=== PATIENT | female | born 2005 | race Caucasian/White ===

== ENCOUNTER 2024-08-03 22:29 | Emergency (ER) | payer SELFPAY ==
--- NOTE | 2024-08-03 23:23 | EDPHYS ---
Physician Documentation [facility] Name: Elvia Bosch Age: 18 yrs Sex: Female : 2005 Arrival Date: 08/03/2024 Time: 22:29 Bed 8 Private MD: ED Physician Alexsander Richard HPI: 08/03 23:47 This 18 yrs old Female presents to ER via Ambulatory with complaints of Rectal kb Bleeding, Abdominal Pain. 23:47 Pt is a 18 year old female who presents for rectal bleeding that started a week ago. kb States she has noticed blood when she wipes after a bowel movement intermittently. Also reports intermittent nosebleeds. States she is concerned about internal bleeding due to cocaine use. . 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 - Infectious Disease History:: Denies. - Social history:: Smoking status: Patient reports the use of cigarette tobacco products, smokes one-half pack cigarettes per day. ROS: 23:47 Constitutional: As per HPI kb Exam: 23:47 Constitutional: This is a well developed, well nourished patient who is awake, alert, kb and in no acute distress. Head/Face: Normocephalic, atraumatic. ENT: Moist Mucous membranes Cardiovascular: Regular rate Respiratory: Respirations even and unlabored. No increased work of breathing. Talking in full sentences Abdomen/GI: Soft, non-tender. No distention Skin: Warm, dry with normal turgor. Normal color. MS/ Extremity: Pulses equal, no cyanosis. Neurovascular intact. Full, normal range of motion. Neuro: Awake and alert, GCS 15, oriented to person, place, time, and situation. 23:47 Abdomen/GI: Rectal exam: is unremarkable, rectal tone normal, Stool: normal, hemorrhoid(s), external, the exam is chaperoned by the nurse, Vital Signs: 23:24 BP 111 / 68; Pulse 78; Resp 18; Temp 98.9; Pulse Ox 98% ; Weight 56.7 kg; Height 5 ft. vc1 3 in. ; Pain 0/10; 23:24 Body Mass Index 22.14 (56.70 kg, 160.02 cm) vc1 23:24 Pain Scale: Adult vc1 MDM: 22:44 Medical Screening Exam initiated kb 23:48 Differential diagnosis: hemorrhoids, fissure. Data reviewed: vital signs, nurses notes. kb Test considered but Not performed: Labs: cbc, cmp considered but pt declines at this time. CT: CT considered but pt declines at this time. Counseling: I had a detailed discussion with the patient and/or guardian regarding the historical points, exam findings, and any diagnostic results supporting the discharge/admit diagnosis, the need for outpatient follow up, a family practitioner, to return to the emergency department if symptoms worsen or persist or if there are any questions or concerns that arise at home. Administered Medications: No medications were administered Disposition: 08/04 04:51 Co-signature as Attending Physician, Alexsander Richard MD I agree with the assessment sp4 and plan of care. I reviewed the patient's care provided by the Advanced Practice Provider and agree with the diagnosis and treatment plan. Disposition Summary: 08/03/24 23:22 Discharge Ordered Notes: Location: Home kb Condition: Stable kb Diagnosis - Other hemorrhoids kb Followup: kb - With: Emergency Department - When: As needed - Reason: Worsening of condition Followup: kb - With: Private Physician - When: 2 - 3 days - Reason: Recheck today's complaints, Continuance of care, Re-evaluation by your physician Discharge Instructions: - Discharge Summary Sheet kb - Hemorrhoids, [id number] kb Forms: - Medication Reconciliation Form kb - Antibiotic Education kb - Prescription Opioid Use kb - Patient Portal Instructions kb - Leadership Thank You Letter kb Signatures: Kasey Lees FNP-C FNP-Ckb Calcote, Vanessa, RN RN Alexsander Quintanilla MD MD sp4 Corrections: (The following items were deleted from the chart) 08/03 23:28 23:26 PMHx: None; vc1 vc1
--- NOTE | 2024-08-03 23:50 | ER ---
Nurse's Notes [facility] Name: Elvia Bosch Age: 18 yrs Sex: Female : 2005 Arrival Date: 08/03/2024 Time: 22:29 Bed 8 Private MD: Diagnosis: Other hemorrhoids Presentation: 08/03 23:24 Chief complaint: Patient states: Bloody noses and blood when wiping bottom. "I'm afraid vc1 I am bleeding internally, my medicine says it can cause bleeding and I have been doing coke.". Coronavirus screen: Client denies travel out of the [place] in the last 14 days. At this time, the client does not indicate any symptoms associated with coronavirus-19. Ebola Screen: Patient negative for fever greater than or equal to 101.5 degrees Fahrenheit, and additional compatible Ebola Virus Disease symptoms Patient denies exposure to infectious person. Patient denies travel to an Ebola-affected area in the 21 days before illness onset. No symptoms or risks identified at this time. Initial Sepsis Screen: Does the patient meet any 2 criteria? No. Patient's initial sepsis screen is negative. Does the patient have a suspected source of infection? No. Patient's initial sepsis screen is negative. Risk Assessment: Do you want to hurt yourself or someone else? Patient reports no desire to harm self or others. Onset of symptoms is unknown. Care prior to arrival: None. Activity prior to arrival: None. Mechanism of Injury: No Mechanism of Injury. Transition of care: patient was not received from another setting of care. 23:24 Method Of Arrival: Ambulatory vc1 23:24 Acuity: JENNIFER 4 vc1 Triage Assessment: 23:31 General: Appears in no apparent distress. comfortable, slender, Behavior is vc1 cooperative, restless. Pain: Complains of pain in epigastric area, right upper quadrant and left upper quadrant Pain does not radiate. EENT: No deficits noted. No signs and/or symptoms were reported regarding the EENT system. Neuro: Level of Consciousness is awake, alert, obeys commands. Cardiovascular: Heart tones S1 S2 Capillary refill < 3 seconds Patient's skin is warm and dry. Respiratory: Airway is patent Respiratory effort is even, unlabored, Respiratory pattern is regular, symmetrical, Breath sounds are clear bilaterally. GI: Abdomen is flat, non-distended, Bowel sounds present X 4 quads. Abd is soft Abdomen is tender to palpation in right lower quadrant and left lower quadrant Reports upper abdominal pain, rectal bleeding. : No deficits noted. No signs and/or symptoms were reported regarding the genitourinary system. Derm: Skin is intact, is healthy with good turgor, Skin is dry, Skin is normal, Skin temperature is warm. Musculoskeletal: Circulation, motion, and sensation intact. Range of motion: intact in all extremities. 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 - Infectious Disease History:: Denies. - Social history:: Smoking status: Patient reports the use of cigarette tobacco products, smokes one-half pack cigarettes per day. Screenin:04 [facility] ED Fall Risk Assessment (Adult) History of falling in the last 3 months, vc1 including since admission No falls in past 3 months (0 pts) Confusion or Disorientation No (0 pts) Intoxicated or Sedated No (0 pts) Impaired Gait No (0 pts) Mobility Assist Device Used No (0 pt) Altered Elimination No (0 pt) Score/Fall Risk Level 0 - 2 = Low Risk Oriented to surroundings, Maintained a safe environment, Educated pt \\T\\ family on fall prevention, incl call for assistance when getting out of bed. Abuse screen: Denies threats or abuse. Nutritional screening: No deficits noted. Tuberculosis screening: No symptoms or risk factors identified. Assessment: 23:43 General: See triage assessment. vc1 Vital Signs: 23:24 BP 111 / 68; Pulse 78; Resp 18; Temp 98.9; Pulse Ox 98% ; Weight 56.7 kg; Height 5 ft. vc1 3 in. ; Pain 0/10; 23:24 Body Mass Index 22.14 (56.70 kg, 160.02 cm) vc1 23:24 Pain Scale: Adult vc1 ED Course: 22:33 Patient arrived in ED. jj6 22:44 Kasey Lees FNP-C is PHCP. kb 22:44 Alexsander Richard MD is Attending Physician. kb 23:04 Arm band placed on right wrist. vc1 23:26 Triage completed. vc1 23:29 Patient has correct armband on for positive identification. Bed in low position. Call vc1 light in reach. Provided Education on: hemmorrhoid care. Pulse ox on. NIBP on. 23:42 No provider procedures requiring assistance completed. vc1 23:43 Patient did not have IV access during this emergency room visit. vc1 Administered Medications: No medications were administered Medication: 23:31 VIS not applicable for this client. vc1 Outcome: 23:22 Discharge ordered by MD. kb 23:43 Discharged to home ambulatory, vc1 23:43 Condition: good 23:43 Discharge instructions given to patient, Instructed on discharge instructions, follow up and referral plans. Demonstrated understanding of instructions, follow-up care, 23:50 Patient left the ED. al5 Signatures: Kasey Lees FNP-C FNP-Michelle Shaw jj6 Kathleen Liu RN RN vc1 Salome Borja RN RN al5 Corrections: (The following items were deleted from the chart) 23:28 23:26 PMHx: None; vc1 vc1
[2024-08-04 00:36] VITALS: BP 111/68; TEMP 98.9; O2SAT 98
== END 2024-08-03 23:50 | disposition home or self-care (01) ==
LOC: ER 22:29
DX: K64.8 Other hemorrhoids (principal)

== ENCOUNTER 2024-09-07 11:36 | Emergency (ER) | payer OTHER, SELFPAY ==
--- NOTE | 2024-09-07 12:33 | ER ---
Nurse's Notes [facility] Name: Elvia Bosch Age: 19 yrs Sex: Female : 2005 Arrival Date: 09/07/2024 Time: 11:36 Bed 4 Private MD: Diagnosis: Other psychoactive substance abuse, uncomplicated Presentation: 09/07 11:54 Chief complaint: Patient states: Requests medical release to go to [facility] to get ll1 help with "cocaine, XO's, and xanax". Reports drug use is taking a toll on her body and her girlfriend wants her to get help quicker. Coronavirus screen: Client denies travel out of the [place] in the last 14 days. At this time, the client does not indicate any symptoms associated with coronavirus-19. Ebola Screen: Patient denies travel to an Ebola-affected area in the 21 days before illness onset. Initial Sepsis Screen: Does the patient meet any 2 criteria? No. Patient's initial sepsis screen is negative. Does the patient have a suspected source of infection? No. Patient's initial sepsis screen is negative. Risk Assessment: Do you want to hurt yourself or someone else? Patient reports no desire to harm self or others. Onset of symptoms was September 07, 2024. 11:54 Method Of Arrival: Ambulatory ll1 11:54 Acuity: JENNIFER 3 ll1 Triage Assessment: 11:58 General: Appears in no apparent distress. Behavior is calm, cooperative, appropriate ll1 for age. General: Reports needing medical clearance to go to [facility]. Pain: Denies pain. Neuro: No deficits noted. 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 - Infectious Disease History:: Denies. - Social history:: Smoking status: Patient reports the use of cigarette tobacco products, smokes one-half pack cigarettes per day. Screenin:39 [facility] ED Fall Risk Assessment (Adult) History of falling in the last 3 months, ap3 including since admission No falls in past 3 months (0 pts) Confusion or Disorientation No (0 pts) Intoxicated or Sedated No (0 pts) Impaired Gait No (0 pts) Mobility Assist Device Used No (0 pt) Altered Elimination No (0 pt) Score/Fall Risk Level 0 - 2 = Low Risk Oriented to surroundings, Maintained a safe environment, Educated pt \\T\\ family on fall prevention, incl call for assistance when getting out of bed, Assessed \\T\\ reinforced patient's understanding of fall precautions, Hourly rounding (assess needs \\T\\ fall precautionary measures) done, Used ambulatory aids as needed (educated on \\T\\ assisted with), Used gait belt as appropriate. Abuse screen: Denies threats or abuse. Nutritional screening: No deficits noted. Tuberculosis screening: No symptoms or risk factors identified. Vital Signs: 11:54 BP 120 / 34; Pulse 85; Resp 16; Temp 97; Pulse Ox 98% on R/A; Weight 56.7 kg; Height 5 ll1 ft. 3 in. ; Pain 0/10; 12:17 BP 105 / 76; ec2 11:54 Body Mass Index 22.14 (56.70 kg, 160.02 cm) ll1 11:54 Pain Scale: Adult ll1 ED Course: 11:39 Patient arrived in ED. ec2 11:39 Baltazar Chapa MD is Attending Physician. ec2 11:44 Arm band placed on Patient placed in an exam room, on a stretcher. EKG completed in ll1 triage. Results shown to MD. 11:50 Mayur Lopez, RN is Primary Nurse. bp 11:58 Triage completed. ll1 12:39 Patient has correct armband on for positive identification. Bed in low position. Call ap3 light in reach. Side rails up X2. Provided Education on: discharge instructions. 12:39 No provider procedures requiring assistance completed. Patient did not have IV access ap3 during this emergency room visit. Administered Medications: No medications were administered Medication: 12:39 VIS not applicable for this client. ap3 Outcome: 12:33 Discharge ordered by MD. ec2 12:39 Discharged to home ambulatory, ap3 12:39 Condition: good 12:39 Discharge instructions given to patient, Instructed on discharge instructions, follow up and referral plans. medication usage, Demonstrated understanding of instructions, follow-up care, medications, Prescriptions given X 1, 12:40 Patient left the ED. ap3 Signatures: Mayur Lopez, GEOFFREY RN bp Salome Roberts RN RN ap3 Violet Osborn, RN RN ll1 Baltazar Chapa MD MD ec2
--- NOTE | 2024-09-07 12:33 | EDPHYS ---
Physician Documentation [facility] Name: Elvia Bosch Age: 19 yrs Sex: Female : 2005 Arrival Date: 09/07/2024 Time: 11:36 Bed 4 Private MD: ED Physician Baltazar Chapa HPI: 09/07 12:10 This 19 yrs old Female presents to ER via Ambulatory with complaints of Drug ec2 Abuse. 12:10 Patient with history of drug abuse arrives today asking for admission for medical ec2 detox. Patient reports that she regularly uses Xanax, methamphetamines, opiates. Patient reports no specific complaints, states that she needs to be "medically cleared "to be admitted to a rehab facility. Patient has otherwise no complaints.. 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 - Infectious Disease History:: Denies. - Social history:: Smoking status: Patient reports the use of cigarette tobacco products, smokes one-half pack cigarettes per day. ROS: 12:10 Constitutional: as per hpi ec2 Exam: 12:10 Constitutional: GEN: NAD Head: atraumatic Eyes: EOMI Ears: External ears are ec2 normal. CV: regular rate LUNGS: no respiratory distress ABD: non-distended SKIN: no evidence of rashes MSK: no evidence of trauma. Neuro: Cooperative individual was otherwise not tremulous without any significant neuro excitement Vital Signs: 11:54 BP 120 / 34; Pulse 85; Resp 16; Temp 97; Pulse Ox 98% on R/A; Weight 56.7 kg; Height 5 ll1 ft. 3 in. ; Pain 0/10; 12:17 BP 105 / 76; ec2 11:54 Body Mass Index 22.14 (56.70 kg, 160.02 cm) ll1 11:54 Pain Scale: Adult ll1 MDM: 11:46 Medical Screening Exam initiated ec2 12:10 Data reviewed: vital signs, nurses notes. ED course: Patient arrives today asking for ec2 admission for medical clearance. Examination is unrevealing. Will prescribe the patient Librium for her Xanax abuse, no emergent process identified on the patient's complaints with reassuring examination and otherwise cooperative individual does not express suicidality or homicidality.. Administered Medications: No medications were administered Disposition Summary: 09/07/24 12:33 Discharge Ordered Condition: Stable ec2 Diagnosis - Other psychoactive substance abuse, uncomplicated ec2 Followup: ec2 - With: Private Physician - When: - Reason: Re-evaluation by your physician Discharge Instructions: - Discharge Summary Sheet ec2 - Substance Use Disorder ec2 Forms: - Medication Reconciliation Form ec2 - Antibiotic Education ec2 - Prescription Opioid Use ec2 - Patient Portal Instructions ec2 - Leadership Thank You Letter ec2 Prescriptions: - chlordiazepoxide HCl 25 mg Oral capsule - take 1 capsule ORAL route once Day 1: 50mg q6h Day 2: 25mg q6h Day 3: 25mg ec2 q12h Day 4: 25mg at night; 15 capsule; Refills: 0, Product Selection Permitted Signatures: Dispatcher [employer] Salome Hogue RN RN ap3 Violet Osborn RN RN ll1 Baltazar Chapa MD MD ec2 Corrections: (The following items were deleted from the chart) 12:10 11:55 EKG - Nurse/Tech ordered. ec2 bp 12:10 11:55 IV Saline Lock ordered. ec2 bp 12:10 11:55 Labs collected and sent ordered. ec2 bp
[2024-09-07 12:44] VITALS: TEMP 97; O2SAT 98
[2024-09-07 12:45] VITALS: BP 105/76
== END 2024-09-07 12:40 | disposition home or self-care (01) ==
LOC: ER 11:36
DX: F19.10 Other psychoactive substance abuse, uncomplicated (principal); F17.210 Nicotine dependence, cigarettes, uncomplicated
CPT/HCPCS: 99283

== ENCOUNTER 2025-01-23 11:51 | Emergency (ER) | payer SELFPAY ==
--- OUTSIDE RECORDS SUMMARY | 2025-01-23 11:55 | XMS REPORT | Continuity of Care Document ---
Author Name Unknown Address [address] [facility] [address] [place] [address] [facility] MD Address [address] [facility] [address] [place] [address] Care Team Providers Care Put In Beat Adjuster Name Role Phone PCP, PATIENT DOES NOT HAVE A Primary Care Physic tomas Unavailable DALILA BRIDGES Attending Clinician Unavailable MAG WOLFE Attending Clinician MAG Howard Attending Clinician Mag Howard MD Attending Clinician [phone] Darrell Loera Attending Clinician DALILA Gabriel Admitting Clinician Unavailable Christopher Eubanks Admitting Clinician Unavailable Payers Payer Name Policy Type Policy Number Effective Date Expirati on Date Source Allergies, Adverse Reactions, Alerts Allergy Name Allergy Type Status Severity Reaction(s) Onset Date Inactive Date Treating Clinician Comments Source CEFDINIR DRUG INGREDI Active Hives 2023-09 00:00: 00 [facility] Cefdinir Propensi ty to adverse reaction s [facility]: [facility] cefdinir DA Active [place] 2016-09 00:00: 00 [facility] cefdinir DA Active MO RASH 2016-09 00:00: 00 [facility] NO KNOWN ALLERGIE S Drug Class Active [facility] Social History Social Habit Start Date Stop Date Quantity Comments Source Sexual orientation U [facility] Sex assigned at 2005 00:00:00 2005 00:00:00 [facility] Smoking Status Start Date Stop Date Source Tobacco smoking consumption unknown [facility] Medications Ordered Medication Name Filled Medication Name Start Date Stop Date Current Medication? Ordering Clinician Indication Dosage Frequency Signature (SIG) Comments Components Source QUEtiapine (SEROQUEL) tablet 400 mg 2023-09 15:00: 00 Yes 400mg 400 mg, Oral, DAILY, First dose on Nery 09/08/24 at 0900, Until Discontinu ed, Routine [facility] chlordiazeP OXIDE (LIBRIUM) capsule 25 mg 2023-09 02:15: 00 09-08 02:29 :00 No 25mg 25 mg, Oral, ONCE, 1 dose, On Thu09/07/24 at 2015, CHARLEY [facility] Vital Signs Vital Name Observation Time Observation Value Comments S ource Systolic blood pressure 2024-09-08 12:45:00 105 mm[Hg] [facility] Diastolic blood pressure 2024-09-08 12:45:00 60 mm[Hg] [facility] Heart rate 2024-09-08 12:45:00 62 /min [facility] Body temperature 2024-09-08 12:45:00 36.72 Stefany [facility] Respiratory rate 2024-09-08 12:45:00 12 /min [facility] Oxygen saturation in Arterial blood by Pulse oximetry 2024-09-08 12:45:00 99 /min [facility] Body height 2024-09-08 00:39:00 157.5 cm [facility] Body weight 2024-09-08 00:39:00 56.7 kg [facility] BMI 2024-09-08 00:39:00 22.86 kg/m2 [facility] Procedures Procedure Date / Time Performed Performing Clinician Source POCT TEST 2024-09-08 03:02:00 Marietta Wolfe [facility] URINE DRUG (IMMUNOASSAY) - COMPREHENSIVE DRUG SCREEN 2024-09-08 01:32:00 Mag Wolfe [facility] TEST, SERUM 2024-09-08 01:25:00 Margarita Wolfe [facility] BASIC METABOLIC PANEL (NA, K, CL, CO2, GLUCOSE, BUN, CREATININE, CA) 2024-09-08 01:25:00 Mag Wolfe [facility] SALICYLATE 2024-09-08 01:25:00 Mag Wolfe [facility] ETHANOL 2024-09-08 01:25:00 Mag Wolfe [facility] CBC WITH DIFF 2024-09-08 01:25:00 [facility]B RSV COVID NAAT 2024-09-08 01:25:00 Mag Wolfe [facility] Encounters Start Date/Time End Date/Time Encounter Type Admission Type Attending [facility] Care Department Encounter ID Source 2024-09-08 08:17:00 2024-09-12 15:02:00 Outpatient DALILA BRIDGES [facility] [id number] [facility] 2024-09-07 18:30:00 2024-09-08 06:50:00 Emergency X MAG WOLEF [facility] ERT [id number] [facility] 2024-09-07 18:30:00 2024-09-08 06:50:00 Emergency Mag Wolfe [facility] [id number] [facility] 2023-09-13 19:42:00 2023-09-13 21:29:00 Emergency EM Darrell Loera HCAKW MICHAEL [id number] [facility] 2021-01-10 01:59:00 2021-01-10 01:59:00 Outpatient PRIV PRIV [id number] [facility] Results Test Description Test Time Test Comments Results Result Co mments Source [facility]- XR FINGER(S) 2+V LV2520-13-37 20:37:00 [facility] 2005 Sex: F FAX: Yanet Fishman Snyder: St: [facility] FAX: Christopher Wing MD [phone] Name: MERON BOSCH [facility] : 2005 Age/S: 18/F [address] Unit #: [id number] Loc: [place] [address] Phys: Yanet Fishman Acct: [id number] Dis Date: Status: REG ER PHONE #: [phone] Exam Date: 09/13/20232004 FAX #: [phone] Reason: left small finger injury EXAMS: CPT CODE: [id number] XR FINGER(S) 2+V LT [address] LOCATION: 3 EXAM: - XR FINGER(S) 2+V LT HISTORY: left small finger injury TECHNIQUE: 3 views left finger COMPARISON: None. FINDINGS: Fracture at the base of the 5th proximal phalanx extending to the articular surface. Mild angulation at the fracture apex. Fracture fragments are nondisplaced. Joint space alignment is anatomic. No focal soft tissue abnormality. Bone marrow mineralization is homogeneous. IMPRESSION: Fracture at the base of the 5th proximal phalanx. at 2036 Reported and signed by: Halima Vasques MD CC: Yanet Fishman; Christopher Eubanks MD Technologist: Antoinette Farrar Trnscrd Date/Time/By: 09/13/2023 (2036) : By: [email or web address] PAGE 1 Signed Report FAX: Yanet Fishman Snyder: St: REG FAX: Christopher Wing MD [phone] Name: MERON BOSCH [facility] : 2005 Age/S: 18/F [address] Unit #: [id number] Loc: [place] [address] Phys: Yanet Fishman Acct: [id number] Dis Date: Status: REG ER PHONE #: [phone] Exam Date: 09/13/20232004 FAX #: [phone] Reason: left small finger injury EXAMS: CPT CODE: [id number] XR FINGER(S) 2+[place] 14308 (Continued) Orig Print D/T: S: 09/13/2023 (2039) PAGE 2 Signed Report Notes Date/Time Note Provider Source 2024-09-08 06:45:00 Patient transferred to [facility] for diagnosis of suicidal ideation Patient agrees to transfer/admit plan and verbalized understanding of plan of care, family aware of plan Patient awake alert, oriented, resp reg unlabored, skin w/d No adverse reaction to medications given while in ED. Report given to [facility] EMS personnel NA Carvalho RN [facility] 2024-09-08 06:45:00 Called patient's mother and updated on plan of care per patient's request. [facility] 2024-09-08 06:45:00 Problem: Suicide, Risk of Goal: Absence of self-harm Outcome: Resolved [facility] 2024-09-08 06:14:37 [facility] ETA [address] [facility] 2024-09-07 22:37:08 Spoke to [facility]. Recommending inpatient. [facility] 2024-09-07 22:18:01 [facility] direct customer service representative has arrived. Provided with appropriate patient documentation. [facility] 2024-09-07 21:23:00 Updated mom, Vero on phone per patients request. [facility] 2024-09-07 21:21:16 [facility] ETA [address] [facility] 2024-09-07 21:11:12 Spoke to [facility] on phone. Will call back with an ETA. [facility] 2024-09-07 19:16:21 Patient has prescriptions for Chlordiazpeoxide HCL 25mg taper, Quetiapine 25mg three times a day PRN, Quetiapine 400mg HS, Oxycarbazepine 300mg twice a day, and Vitamin D2 1.25mg weekly. [facility] 2024-09-07 19:02:41 Patient educated on emergency department behavioral process and precautions. Educated on the need for direct observation, removal of belongings, and clearing of room for patient safety. [facility] 2024-09-07 18:54:20 SAFE-T Protocol with C-SSRS (Taylor Risk and Protective Factors) - Recent Step 1: Identify Risk Factors 1) Wish to be - Have you wished you were or wished you could go to sleep and not wake up? (P) Yes 2) Current suicidal thoughts - Have you actually had any thoughts of killing yourself? (P) Yes 3) Suicidal thoughts w/method- Have you been thinking about how you might do this? (P) Yes 3a) Describe: (P) Overdose, or hang self 4) Suicidal intent without Specific Plan- Have you had these thoughts and had some intention of acting on them? (P) Yes 4a) Describe: (P) has plan 5) Intent with Plan- Have you started to work out or worked out the details of how to kill yourself? Do you intend to carry out this plan? (P) Yes 5a) Describe: (P) overdose or hang self 6) C-SSRS Suicidal Behavior - Have you ever done anything, started to do anything, or prepared to do anything to end your life? (P) Yes 6b) Was it in the past 3 months? (P) Yes Suggested risk level: (P) High Activating Events: (P) Other (see comments) (drug usage, wanting rehab) Treatment History: (P) Non-compliant with treatment Clinical Status: (P) Mixed affect episode (e.g. Bipolar), Substance abuse or dependence Access to lethal methods: (P) No Step 2: Identify Protective Factors (Protective factors that may not counteract significant acute suicide risk factors) Internal: (P) Other (see comments) (desires help) External: (P) None Step 3: Specific Questioning About Thoughts, Plans, and Suicidal Intent Frequency - How many times have you had these thoughts? (P) Daily or almost dailly Duration - When you have the thoughts, how long do they last? (P) 1-4 hours/a lot of the time (unknown) Controllability - Could/can you stop thinking about killing yourself or wanting to if you want to? (P) Unable to control thoughts Deterrents - Are there things, anyone or anything (e.g. family, moravian, pain of ), that stopped you from wanting to or acting on thoughts of suicide? (P) Uncertain that deterrents stopped you Reasons for ideation - What sort of reasons did you have for wanting to or kill yourself? Was it to end pain, stop the way you are feeling, or to get attention, revenge or reaction from others? Or both? (P) Does not apply Stratification: High Suicide Risk Moderate Suicide Risk Low Suicide Risk ?? Suicidal ideation with intent or intent with plan in past month (C-SSRS Suicidal Ideation #4 or #5) Or ?? Suicidal behavior within past 3 months (C-SSRS Suicidal Behavior) ?? Suicidal ideation with method, WITHOUT plan, intent or behavior in past month (C-SSRS Suicidal Ideation #3) Or ?? Suicidal behavior more than 3 months ago (C-SSRS Suicidal Behavior Lifetime) Or ?? Multiple risk factors and few protective factors ?? Wish to or Suicidal Ideation WITHOUT method, intent, plan or behavior (C-SSRS Suicidal Ideation #1 or #2) Or ?? Modifiable risk factors and strong protective factors Or ? No reported history of Suicidal Ideation or Behavior Location / Risk: Inpatient / High: Suicidal ideation with intent and with realistic plan and no protective factors in past month OR suicidal behavior within the past 3 months. Includes suicidal behavior as reason for admission. a. Mitigate the risk for suicide by instituting one-one monitoring, removing objects that pose a risk for self-harm, assessing objects brought into a room by visitors, using safe transportation procedures when moving patient to another part of the unit or another part of the hospital, and performing the checklist recommendations for a safe environment. b. Food tray in plastic or paper containers with plastic utensils (no knives or aluminum cans). c. Transfer to Inpatient Psychiatry facility/Psychiatry Consult once medically cleared. d. Follow-up determined by the inpatient Psychiatric facility. [facility] 2024-09-07 18:33:53 Pt to ED reporting that she was supposed to go to [facility] today, but states that they were not able to accept her because they do not have a detox program. Reports that she went to [facility] and was prescribed chlordiazepoxide to start the detox process, but did not pick up and delivery driver the medications. Reports that she came here instead. States that she is suicidal, last attempt approx 6 months ago by hanging herself. Currently has a plan to OD or hang herself. Has access to weapons. Pt is cussing a lot and has intermittent rapid speech. Denies AVH. Hx of psychiatric admissions, last admission was 6mo ago. Reports being admitted due to psychosis and hearing voices. Dx with Bipolar type unspecified and Borderline Personality Disorder. Currently taking Seroquel 400mg at night 25mg TID, and Trileptal 300mg BID. Last used xanax, marijuana, and morphine this morning. Last used cocaine yesterday. Last used meth yesterday. [facility] 2024-09-07 18:24:00 [facility] Emergency Department Note Patient Name: Meron Bosch Date of : 2005 19 year old female Treatment Room: [place] [address] Primary Care Physician: No primary care provider on file. Patient Escorted by: Family [5] Mode of Arrival: Personal means [1] EMS Treatment Prior to ED Arrival: MINING ANALYST treatment: Medication (comment) MINING ANALYST treatment comments: daily meds Travel and Exposure Screening: Symptoms Does patient have any of these symptoms?: (not recorded) Exposure Screening Has patient had contact with someone with a communicable disease in the last month?: (not recorded) Diseases exposed to:: (not recorded) Is Patient ?: (not recorded) Exposure Date: (not recorded) Chief Complaint: Chief Complaint Patient presents with Suicidal ideation History of Present Illness: Pt presents with thoughts of hurting herself for "some time." PT plans to overdose or hang herself. PT was scheduled to go to drug rehab today but states they don't have a psychiatrist and that's who I want to see. PT states she used meth and cocaine yesterday. Pt has h/o Bipolar disorder and Borderline personality. Past Medical History/Immunizations: History reviewed. No pertinent past medical history. Tetanus received in last 5 years: No Childhood immunizations: Up-to-date Allergies: Allergies Allergen Reactions Omnicef [Cefdinir] Hives Past Social History: Substance & Sexual Activity No substance use or sexual activity history on file. Past Surgical History: History reviewed. No pertinent surgical history. Review of Systems: Review of Systems Constitutional: Negative for fever. HENT: Negative for voice change. Gastrointestinal: Negative for vomiting. Skin: Negative for wound. Psychiatric/Behavioral: Positive for behavioral problems, self-injury and suicidal ideas. Physical Exam: ED Triage Vitals [09/07/24 1839] Weight 56.7 kg (125 lb) Actual or estimated Estimated by patient/family report Height 1.575 m (5' 2") BP 121/83 Pulse 102 Resp 15 Temp 36.7 ?C (98.1 ?F) Temp source Oral SpO2 100 % Measured on Room air Physical Exam Vitals and nursing note reviewed. Constitutional: Appearance: Normal appearance. HENT: Head: Normocephalic. Eyes: Extraocular Movements: Extraocular movements intact. Cardiovascular: Rate and Rhythm: Tachycardia present. Pulmonary: Effort: Pulmonary effort is normal. Breath sounds: Normal breath sounds. Neurological: General: No focal deficit present. Mental Status: She is alert and oriented to person, place, and time. Psychiatric: Comments: Depressed mood Radiology: No orders to display Lab Results: Lab Results CBC WITH DIFF - Abnormal Result Value Ref Range WBC 14.89 (*) 4.30 - 11.10 10*3/?L RBC 4.44 3.93 - 5.25 10*6/?L HGB 14.1 11.6 - 15.0 g/dL HCT 42.1 35.7 - 45.2 % MCV 94.8 80.6 - 95.5 fL MCH 31.8 25.9 - 32.8 pg MCHC 33.5 31.6 - 35.1 g/dL RDW-SD 46.5 39.0 - 49.9 fL RDW-CV 13.2 12.0 - 15.5 % PLT 342 166 - 358 10*3/?L MPV 9.8 9.5 - 12.9 fL NRBC/100 WBC 0.0 0.0 - 10.0 /100 WBCs NRBC x10 3 <0.01 10*3/?L GRAN MAT (NEUT) % 63.2 % IMM GRAN % 0.40 % LYMPH % 28.5 % MONO % 7.2 % EOS % 0.4 % BASO % 0.3 % GRAN MAT x10 3 (ANC) 9.41 (*) 1.88 - 7.09 10*3/uL IMM GRAN x10 3 0.06 0.00 - 0.06 10*3/uL LYMPH x10 3 4.24 (*) 1.32 - 3.29 10*3/uL MONO x10 3 1.07 (*) 0.33 - 0.92 10*3/uL EOS x10 3 0.06 0.03 - 0.39 10*3/uL BASO x10 3 0.05 0.01 - 0.07 10*3/uL ACETAMINOPHEN - Abnormal ACETAMINOP <10.0 (*) 10.0 - 30.0 ug/mL URINE DRUG (IMMUNOASSAY) - COMPREHENSIVE DRUG SCREEN - Abnormal AMPHET Presumptive Positive (*) Negative YASH U Negative Negative BENZO U Presumptive Positive (*) Negative Cocaine Metabolite Presumptive Positive (*) Negative METHADONE Negative Negative OPIATES Negative Negative PCP Negative Negative THC Presumptive Positive (*) Negative INFLUENZA A/B RSV COVID NAAT - Normal Influenza A NAAT Negative Negative Influenza B NAAT Negative Negative RSV by PCR Negative Negative SARS-CoV-2 NAAT Negative Negative POCT TEST - Normal POCT PREG Negative On board controls acceptable with C Line Yes POCT PREG LOT # [id number] POCT PREG TEST DATE 2025-09-05 BASIC METABOLIC PANEL (NA, K, CL, CO2, GLUCOSE, BUN, CREATININE, CA) NA 140 135 - 145 mmol/L K 3.7 3.5 - 5.0 mmol/L CL 103 98 - 108 mmol/L CO2 TOTAL 28 23 - 31 mmol/L AGAP 9 2 - 16 BUN 10 7 - 23 mg/dL GLUCOSE 84 70 - 110 mg/dL CREATININE 0.67 0.50 - 1.04 mg/dL CALCIUM 9.9 8.6 - 10.6 mg/dL eGFR 127.7 mL/min/1.73m2 ETHANOL ALCOHOL <10 mg/dL SALICYLATE SALICYLATE <10 mg/L TEST, SERUM PREG SERUM Negative EKG: If EKG completed, see Procedure Note. Orders and Treatments: Orders Placed This Encounter Procedures Cbc with Diff Basic Metabolic Panel (NA, K, CL, CO2, GLUCOSE, BUN, CREATININE, CA) Ethanol Salicylate Acetaminophen DRUG SCREEN PANEL 2 URINE Influenza A B RSV COVID NAAT Lab Only COVID Interpretation Test, Serum POCT TEST Orders Placed This Encounter Medications chlordiazePOXIDE (LIBRIUM) capsule 25 mg QUEtiapine (SEROQUEL) tablet 400 mg First Provider Eval: ED Events Date/Time Event User Comments 09/07/24 183 First Provider Evaluation MAG WOLFE MD -- 09/07/24 184 Medical Screening Begins MAG WOLFE MD -- ED COURSE ED Course as of 09/07/242225Sep 07, 20242223 Awaiting on [facility] evaluation. PT to be s/o to Dr. Almeida. [PB] 1859 Will obtain psych labs. [PB] ED Course User Index [PB] Mag Wolfe MD Diagnosis/Impression as of 09/07/242225 Suicidal ideation Procedures: Procedures MDM: Medical Decision Making 19 yo F presents with SI Amount and/or Complexity of Data Reviewed Labs: ordered. Details: UDS + for amphetamine, THC, cocaine, Discussion of management or test interpretation with external provider(s): [facility] in agreement with transfer for psych facility. Risk Prescription drug management. Flowsheet Documentation: Scoring Tools: No data recorded Disposition/Condition: ED Disposition None Discharge Medications: Patient's Medications No medications on file Follow-up: Electronically signed by: Mag Wolfe MD 09/07/242225 Mag Wolfe MD 09/07/[address] [facility] 2024-09-07 18:24:00 Psychiatric Re-Evaluation Note Emergency Department Date: September 08, 2024 I have reassessed the patient on this shift. The patient states or demonstrates that they are still having: Suicidal ideation or thoughts: Yes Homicidal ideation or thoughts: No Auditory and/or visual hallucinations: No Psychosis, paranoia, or other mental instability impairing normal decision making: No Suggested risk level of Taylor: High On reassessment, the patient should still be transferred for psychiatric assessment and care: Yes pt requests If no, explain: The patient remains medically stable for psychiatric transfer. Yes If no, explain: The patient remains {: Voluntary for psychiatric treatment. The patient is being treated for the following medical conditions: None The patient has been given or is being treated with the following medications: Orders Placed This Encounter Medications chlordiazePOXIDE (LIBRIUM) capsule 25 mg QUEtiapine (SEROQUEL) tablet 400 mg MD Juan Pablo Toribio Donnell, MD 09/08/24 0557 [facility] EMERGENCY PHYSICIAN STAFF [facility] 2023-09-13 19:57:00 [facility] EMERGENCY PROVIDER REPORT REPORT#:[id number] REPORT STATUS: Signed DATE:09/13/23 TIME: 1956 PATIENT: MERON BOSCH UNIT #: [id number] ROOM/BED: AGE: 18 SEX: F PCP PHYS: Christopher Eubanks MD SERVICE AUTHOR: Yanet Fishman APRNNP * ALL edits or amendments must be made on the electronic/computer document * Yanet Fishman 09/13/231956: HPI-Hand Prob/Inj Free Text HPI Notes Free Text HPI Notes 18-year-old female presents ER with complaints of a finger injury. Patient states she was walking her dog when her dog jerked the leash and pulled the finger. Patient denies any other complaints. General Confirmed Patient Yes Patient Type New patient Initial Greet Date/Time 09/13/231942 Presentation Chief Complaint Finger pain L Hx Obtained From Patient Onset Occurred Just prior to arrival Review of Systems ROS Statements All systems rev neg except as marked. Complete sys rev neg except as marked. Free Text ROS Notes Free Text ROS Notes - CONSTITUTIONAL: Denies weight loss, fever and chills. - HEENT: Denies changes in vision and hearing. - RESPIRATORY: Denies shortness of breath and cough. - CV: Denies palpitations and chest pain. - GI: Denies abdominal pain, nausea, vomiting and diarrhea. - : Denies dysuria and urinary frequency. - MSK: Positive for left finger pain, small digit, mild swelling - SKIN: Denies rash and pruritus. - NEUROLOGICAL: Denies headache and syncope. - PSYCHIATRIC: Denies recent changes in mood. Denies anxiety and depression Past Medical History - Adult Stated Complaint SWELLING AND PAIN ON LEFT PINKY FINGER Allergies Coded Allergies: cefdinir (From [employer]) (Intermediate, RASH 08/09/17) Home Medications Reported Medications guanFACINE (TENEX) (Unknown Dose) AMOXICILLIN (AMOXIL) 500 MG PO Q12H IBUPROFEN (ADVIL) 400 MG PO Q6H Review of Nursing Notes Rev avail, and agree, Rapid assess notes rev Pt reports no significant: Past medical history, Past surgical history Smoking status for patients 13 years old or older: Unknown,if ever smoked Physical Exam Vital Signs Review of Vital Signs Reviewed, Vital signs normal Free Text PE Notes Free Text PE Notes Basic PE GEN: Well appearing/NAD HEAD: Atraumatic/NC EYES: PERRL, conj clear ENT: Membranes moist NECK: Supple, full range of motion RESP: No resp distress, clear to auscultation CV: Reg rate rhythm ABD: Soft/non-tender, positive bowel sounds x4 EXT: No gross abnormality SKIN: No rashes, warm/dry NEURO: alert oriented, gross movement NL PSYCH: NL thought content Interpretation Diagnostics Lab Results Interpretation Results Recent Impressions: RADIOLOGY - XR FINGER(S) 2+V LT 09/13 2000 Report Impression - Status: SIGNED Entered: 09/13/20232039 IMPRESSION: Fracture at the base of the 5th proximal phalanx. Impression By: [email or web address] Halima Singh MD Lab Statement Laboratory studies reviewed and considered in the medical decision-making. Point of Care Testing Pulse Oximetry Pulse Ox % 97 On: Room air Interpretation Interpreted by me, Pulse oximetry normal Time 1945 Re-Evaluation MDM ED Course Medication(s) Ordered Medication(s) Ordered: Central Nervous System Agents Sig/Kelsey Start time Last Medication Dose Route Stop Time Status Admin Ibuprofen 400 MG X1ED STA 09/13 1951 DC 09/13 PO 09/13 Patient Discharge Departure Vital Signs/Condition Vital Signs First Documented: Result Date Time Pulse Ox 97 09/13 1946 B/P 123/80 09/13 1946 B/P Mean 94.1 09/13 1946 Temp 37.2 09/13 1946 Pulse 73 09/13 1946 Resp 30 09/13 1946 Last Documented: Result Date Time Pulse Ox 97 09/13 1946 B/P 123/80 09/13 1946 B/P Mean 94.1 09/13 1946 Temp 37.2 09/13 1946 Pulse 73 09/13 1946 Resp 30 09/13 1946 All vital signs available at the time of this entry have been reviewed. Condition Stable Clinical Impression Clinical Impression Primary Impression: Finger fracture Disposition Decision Discharge )( Discharged to Home Yes )( Time 2058 )( Date 09/13/23 Discharge/Care Plan Counseled Regarding Diagnosis, Imaging studies, Prescriptions, Need for follow- up, When to return to ED (Auto) Prescriptions Current Visit Scripts IBUPROFEN (MOTRIN) 600 MG PO QID PRN PRN PAIN IBUPROFEN (MOTRIN) 600 MG PO QID PRN PRN PAIN #30 TABS Prescriptions Reviewed Risks, Benefits, Alternative treatment Patient Instructions ED Fracture, Finger, Closed Additional Instructions Thank you for coming to [facility] The care we provided was on an emergency basis. It is not a substitute for regularly scheduled appointments with your primary care provider (PCP). It essential to have a PCP who can help manage chronic medical conditions and arrange for necessary screening tests, etc. Call your primary care provider within the next 24 hours to schedule a follow-up appointment in the next 2 to 3 days Take your previously prescribed medications as directed Take any medications prescribed today as directed Avoid tobacco smoke and tobacco products! Tobacco use contributes to a number of medical conditions, including COPD, heart disease, high blood pressure, and many types of cancers. Return to the emergency department for worsening symptoms or any other concerns Departure Forms [facility] Discharge Note I have spoken with the patient and/or caregivers. I have explained the patient's condition, diagnoses and treatment plan based on the information available to me at this time. I have answered the patient's and/or caregiver's questions and addressed any concerns. The patient and/or caregivers have as good an understanding of the patient's diagnosis, condition and treatment plan as can be expected at this point. The vital signs have been stable. The patient's condition is stable and appropriate for discharge from the emergency department. The patient will pursue further outpatient evaluation with the primary care physician or other designated or consulting physician as outlined in the discharge instructions. The patient and/or caregivers are agreeable to this plan of care and follow-up instructions have been explained in detail. The patient and/or caregivers have received these instructions in written format and have expressed an understanding of the discharge instructions. The patient and/or caregivers are aware that any significant change in condition or worsening of symptoms should prompt an immediate return to this or the closest emergency department or a call to 911. Darrell Loera 09/13/232121: Physical Exam Vital Signs Vital Signs First Documented: Result Date Time Pulse Ox 97 09/13 1946 B/P 123/80 09/13 1946 B/P Mean 94.1 09/13 1946 Temp 37.2 09/13 1946 Pulse 73 09/13 1946 Resp 30 09/13 1946 Last Documented: Result Date Time Pulse Ox 97 09/13 1946 B/P 123/80 09/13 1946 B/P Mean 94.1 09/13 1946 Temp 37.2 09/13 1946 Pulse 73 09/13 1946 Resp 30 09/13 1946 Patient Discharge Departure Supervising Physician Note MidLv Saw Pt Alone I have reviewed the PA/SILVICULTURE PROFESSOR's note and plan of care. I was available for consultation as needed at all times during the patient's visit in the emergency department. I agree with the clinical impression, plan and disposition. at 0229 at [id number] RPT #:[id number] END OF REPORT HCAKW
--- NOTE | 2025-01-23 13:40 | RAD REPORT ---
EXAMINATION: TWO VIEW CHEST XR CLINICAL INDICATION: Female, 19 years old. [facility] MA[facility] Chest pain;Cough Bed Name: [facility] TECHNIQUE: 2 view radiographs of the chest were performed. COMPARISON: No prior exam. FINDINGS: The lungs are well inflated and clear. No pneumothorax or sizable effusion. The heart is normal in si ze. Mediastinal contours are unremarkable. IMPRESSION: No acute or significant abnormalities.
[2025-01-23 13:56] LABS: Influenza A Ag Negative; Influenza B Ag Negative; SARS-CoV-2 Antigen Rapid Res Negative (Negative)
--- NOTE | 2025-01-23 14:30 | ER ---
Nurse's Notes [facility] Name: Elvia Bosch Age: 19 yrs Sex: Female : 2005 Arrival Date: 01/23/2025 Time: 11:51 Bed 12 Private MD: Diagnosis: Chest pain, unspecified;Pleurisy Presentation: 01/23 12:39 Chief complaint: Patient states: Shard pains to RIBS/Chest, cough X 4 days. Coronavirus ld1 screen: At this time, the client does not indicate any symptoms associated with coronavirus-19. Ebola Screen: No symptoms or risks identified at this time. Initial Sepsis Screen: Does the patient meet any 2 criteria? No. Patient's initial sepsis screen is negative. Does the patient have a suspected source of infection? No. Patient's initial sepsis screen is negative. Risk Assessment: Do you want to hurt yourself or someone else? Patient reports no desire to harm self or others. Onset of symptoms was January 23, 2025. 12:39 Method Of Arrival: Ambulatory ld1 12:39 Acuity: JENNIFER 3 ld1 Triage Assessment: 12:40 General: Appears in no apparent distress. comfortable, Behavior is calm, cooperative, ld1 appropriate for age. Pain: Complains of pain in back and chest Pain does not radiate. Pain at worst was 8 out of 10 on a pain scale. Quality of pain is described as throbbing, Pain began suddenly, Is continuous. EENT: No signs and/or symptoms were reported regarding the EENT system. Neuro: Level of Consciousness is awake, alert, obeys commands, Oriented to person, place, time, situation. Cardiovascular: Capillary refill < 3 seconds Patient's skin is warm and dry. Respiratory: Reports cough that is Airway is patent Respiratory effort is even, unlabored. GI: Abdomen is flat, non-distended. : No signs and/or symptoms were reported regarding the genitourinary system. Derm: No signs and/or symptoms reported regarding the dermatologic system. Musculoskeletal: No signs and/or symptoms reported regarding the musculoskeletal system. Historical: - Allergies: 12:38 Omnicef; ld1 12:43 Latex, Natural Rubber; ld1 12:43 Ibuprofen; ld1 12:43 Advil; ld1 - PMHx: 12:40 None; ld1 - PSHx: 12:38 Appendectomy; ld1 - Immunization history:: Adult Immunizations up to date. - Infectious Disease History:: Denies. - Social history:: Smoking status: Patient denies any tobacco usage or history of. - Family history:: not pertinent. - Hospitalizations: : No recent hospitalization is reported. Screenin:42 Tuberculosis screening: No symptoms or risk factors identified. Never had TB. iw 14:43 [facility] ED Fall Risk Assessment (Adult) History of falling in the last 3 months, iw including since admission No falls in past 3 months (0 pts) Confusion or Disorientation No (0 pts) Intoxicated or Sedated No (0 pts) Impaired Gait No (0 pts) Mobility Assist Device Used No (0 pt) Altered Elimination No (0 pt) Score/Fall Risk Level 0 - 2 = Low Risk Oriented to surroundings, Maintained a safe environment. Abuse screen: Injuries were caused by another. Nutritional screening: No deficits noted. Assessment: 14:42 Reassessment: Patient appears in no apparent distress at this time. Patient and/or iw family updated on plan of care and expected duration. Pain level reassessed. Patient is alert, oriented x 3, equal unlabored respirations, skin warm/dry/pink. Vital Signs: 12:39 BP 102 / 73; Pulse 80; Resp 18; Temp 98.6(O); Pulse Ox 98% on R/A; Weight 56.7 kg; ld1 Height 5 ft. 4 in. ; Pain 8/10; 12:39 Body Mass Index 21.46 (56.70 kg, 162.56 cm) ld1 12:39 Pain Scale: Adult ld1 ED Course: 12:35 Patient arrived in ED. mr 12:35 Vick De Jesus MD is Attending Physician. rn 12:40 Triage completed. ld1 12:40 Arm band placed on right wrist. ld1 13:12 XRAY Chest Pa And Lat (2 Views) In Process Unspecified. EDMS 13:18 Marine Mueller, RN is Primary Nurse. ld1 13:26 Karin Guzman, RN is Primary Nurse. iw 13:27 Group A Streptococcus Rapid Sent. bc6 13:27 COVID-19 Ag + Flu A+B Ag Sent. bc6 14:42 Provided Education on: . iw 14:42 No provider procedures requiring assistance completed. Patient did not have IV access iw during this emergency room visit. Patient maintains SpO2 saturation greater than 95% on room air. 14:44 Patient has correct armband on for positive identification. iw Administered Medications: No medications were administered Medication: 14:43 VIS not applicable for this client. iw Outcome: 14:30 Discharge ordered by . rn 14:46 Discharged to home ambulatory, with family, iw 14:46 Condition: good 14:46 Discharge instructions given to patient, family, Instructed on discharge instructions, Demonstrated understanding of instructions, 14:47 Patient left the ED. iw Signatures: Dispatcher [employer] EDMS Marti Martinez, Reg Reg mr Karin Guzman, RN RN iw Vick De Jesus MD MD rn Sims, Lauren, RN RN ld1 Lisa Perla bc6 Corrections: (The following items were deleted from the chart) 12:41 12:39 Acuity: JENNIFER 4 ld1 ld1 12:44 12:43 Allergies: Ibuprofen; ld1 ld1 13:27 13:19 patient stated she doesn't need to be swabed bc6 bc6
--- NOTE | 2025-01-23 14:30 | EDPHYS ---
Physician Documentation [facility] Name: Elvia Bosch Age: 19 yrs Sex: Female : 2005 Arrival Date: 01/23/2025 Time: 11:51 Bed 12 Private MD: ED Physician Vick De Jesus HPI: 01/23 12:45 This 19 yrs old Female presents to ER via Ambulatory with complaints of Cough, Chest rn Pain. 12:45 The patient or guardian reports cough, flu symptoms. Onset: The symptoms/episode rn began/occurred. 12:47 Onset: The symptoms/episode began/occurred 3 day(s) ago. Severity of symptoms: At their rn worst the symptoms were mild, in the emergency department the symptoms are unchanged. Modifying factors: The symptoms are alleviated by nothing, the symptoms are aggravated by nothing. The patient has experienced similar episodes in the past. Patient reports cough, chest pain from coughing, soreness, subjective fever and chills for 3 days now. Patient is active smoker. No known sick contacts. Patient reports generalized weakness and malaise. No hemoptysis. No abdominal pain/vomiting/diarrhea. No rashes.. Historical: - Allergies: 12:38 Omnicef; ld1 12:43 Latex, Natural Rubber; ld1 12:43 Ibuprofen; ld1 12:43 Advil; ld1 - PMHx: 12:40 None; ld1 - PSHx: 12:38 Appendectomy; ld1 - Immunization history:: Adult Immunizations up to date. - Infectious Disease History:: Denies. - Social history:: Smoking status: Patient denies any tobacco usage or history of. - Family history:: not pertinent. - Hospitalizations: : No recent hospitalization is reported. ROS: 12:47 Constitutional: Positive for subjective fever Eyes: Negative for injury, pain, redness, rn and discharge, Cardiovascular: Negative for chest pain, palpitations, and edema, Respiratory: Positive for cough, positive for pleuritic chest pain bilaterally. Negative for hemoptysis. Abdomen/GI: Negative for abdominal pain, nausea, vomiting, diarrhea, and constipation, MS/Extremity: Negative for injury and deformity, Skin: Negative for injury, rash, and discoloration, Neuro: Negative for headache, weakness, numbness, tingling, and seizure, Exam: 12:47 Constitutional: This is a well developed, well nourished patient who is awake, alert, rn and in no acute distress. Head/Face: Normocephalic, atraumatic. ENT: No pharyngeal erythema or exudate. No stridor. No lesions. Cardiovascular: Regular rate and rhythm. No pulse deficits. Respiratory: Speaking full sentences, unlabored. No increased work of breathing, no retractions or nasal flaring. Abdomen/GI: Soft, non-tender Skin: No rash or lesions MS/ Extremity: Pulses equal, no cyanosis. Old and healed left forearm abrasions noted Neuro: Awake and alert, GCS 15 Vital Signs: 12:39 BP 102 / 73; Pulse 80; Resp 18; Temp 98.6(O); Pulse Ox 98% on R/A; Weight 56.7 kg; ld1 Height 5 ft. 4 in. ; Pain 8/10; 12:39 Body Mass Index 21.46 (56.70 kg, 162.56 cm) ld1 12:39 Pain Scale: Adult ld1 MDM: 12:36 Medical Screening Exam initiated rn 14:28 Differential Diagnosis: Bronchitis Influenza Upper Respiratory Infection Sinusitis rn Viral Syndrome Pneumonia Other Pneumothorax. Data reviewed: vital signs, nurses notes, lab test result(s), radiologic studies, plain films, and as a result, I will discharge patient. Counseling: I had a detailed discussion with the patient and/or guardian regarding the historical points, exam findings, and any diagnostic results supporting the discharge/admit diagnosis, lab results, radiology results, the need for outpatient follow up, to return to the emergency department if symptoms worsen or persist or if there are any questions or concerns that arise at home. Response to treatment: There is no appreciated change of the patient's symptoms at this time. 14:29 Counseling: I had a detailed discussion with the patient and/or guardian regarding rn smoking cessation. ED course: No acute findings and workup. COVID/flu/strep negative. Chest x-ray negative for pneumothorax or pneumonia per my interpretation. Recommend smoking cessation and will discharge with return precautions.. 01/23 12:44 Order name: COVID-19 Ag + Flu A+B Ag; Complete Time: 14:24 rn 01/23 12:44 Order name: Group A Streptococcus Rapid; Complete Time: 14:24 rn 01/23 13:58 Order name: Throat Culture EDAZ 01/23 12:44 Order name: XRAY Chest Pa And Lat (2 Views); Complete Time: 13:49 rn Administered Medications: No medications were administered Disposition Summary: 01/23/25 14:30 Discharge Ordered Notes: Location: Home rn Problem: new rn Symptoms: have improved rn Condition: Stable rn Diagnosis - Chest pain, unspecified rn - Pleurisy rn Followup: rn - With: Private Physician - When: As needed - Reason: Recheck today's complaints, Re-evaluation by your physician Discharge Instructions: - Discharge Summary Sheet rn - Nonspecific Chest Pain, Adult rn - Steps to Quit Smoking rn Forms: - Work release form iw - Medication Reconciliation Form rn - 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
[2025-01-24 17:05] VITALS: BP 102/73; TEMP 98.6; O2SAT 98
== END 2025-01-23 14:47 | disposition home or self-care (01) ==
LOC: ER 11:51
DX: R09.1 Pleurisy (principal); R05.9 Cough, unspecified; F17.210 Nicotine dependence, cigarettes, uncomplicated; Z11.52 Encounter for screening for COVID-19
CPT/HCPCS: 36415; 71046; 87070; 87428; 99283

== ENCOUNTER 2025-07-06 00:39 | Emergency (ER) | payer SELFPAY ==
--- OUTSIDE RECORDS SUMMARY | 2025-07-06 00:44 | XMS REPORT | Continuity of Care Document ---
Author Name Unknown Address [address] [facility] [address] [place] [address] Organization [facility] [place] Address [address] [facility] [address] [place] [address] Care Team Providers Care Woods Manager Name Role Phone Pcp, Patient Does Not Have A Primary Care Physic tomas NEO MASCORRO Attending Clinician Unavailable Alessandro Ham MD Attending Clinician [phone] YULISA PARNELL Attending Clinician Unavailable YULISA PARNELL Attending Clinician Unavailable DALILA BRIDGES Attending Clinician Unavailable MAG WOLFE Attending Clinician UnavailMAG Briceno Attending Clinician UnavailMag Briceno MD Attending Clinician [phone] Darrell Loera Attending Clinician UnavailYULISA Osborne Admitting Clinician Unavailable DALILA BRIDGES Admitting Clinician Unavailable Christopher Eubanks Admitting Clinician Unavailable Payers Payer Name Policy Type Policy Number Effective Date Expirati on Date Source Allergies, Adverse Reactions, Alerts Allergy Name Allergy Type Status Severity Reaction(s) Onset Date Inactive Date Treating Clinician Comments Source CEFDINIR DRUG INGREDI Active Hives 2023-09 00:00: 00 [facility] Cefdinir Propensi ty to adverse reaction s Active Hives 2023-09 00:00: 00 [facility] cefdinir DA Active MO 2016-09 00:00: 00 [facility] cefdinir DA Active MO RASH 2016-09 00:00: 00 [facility] NO KNOWN ALLERGIE S Drug Class Active [facility] Social History Social Habit Start Date Stop Date Quantity Comments Source [facility] Possible [facility] Sex assigned at 2005 00:00:00 2005 00:00:00 [facility] Smoking Status Start Date Stop Date Source Tobacco smoking consumption unknown [facility] Medications Ordered Medication Name Filled Medication Name Start Date Stop Date Current Medication? Ordering Clinician Indication Dosage Frequency Signature (SIG) Comments Components Source methylPREDN ISolone (MEDROL, HELEN,) 4 mg tablets 02-13 00:00: 00 Yes [id number] Take by mouth SEE-INSTRU CTIONS. follow package directions [facility] ibuprofen 600 mg tablet 02-13 00:00: 00 Yes [id number] 600mg Take 1 tablet by mouth every 6 (six) hours as needed for Pain (scale 4-6). [facility] QUEtiapine (SEROQUEL) tablet 400 mg 2023-09 15:00: 00 Yes 400mg 400 mg, Oral, DAILY, First dose on Nery 09/08/24 at 0900, Until Discontinu ed, Routine [facility] chlordiazeP OXIDE (LIBRIUM) capsule 25 mg 2023-09 02:15: 00 09-08 02:29 :00 No 25mg 25 mg, Oral, ONCE, 1 dose, On Thu09/07/24 at 2015, CHARLEY [facility] Vital Signs Vital Name Observation Time Observation Value Comments S tim Systolic blood pressure 2025-03-30 21:00:00 115 mm[Hg] [facility] Diastolic blood pressure 2025-03-30 21:00:00 85 mm[Hg] [facility] Heart rate 2025-03-30 21:00:00 74 /[facility] temperature 2025-03-30 21:00:00 36.78 Stefany [facility] Respiratory rate 2025-03-30 21:00:00 18 /min [facility] Body height 2025-03-30 18:20:00 157.5 cm [facility] Body weight 2025-03-30 18:20:00 56.7 kg [facility] BMI 2025-03-30 18:20:00 22.86 kg/m2 [facility] Oxygen saturation in Arterial blood by Pulse oximetry 2025-03-30 18:20:00 100 /min [facility] Systolic blood pressure 2025-02-14 02:20:00 105 mm[Hg] [facility] Diastolic blood pressure 2025-02-14 02:20:00 63 mm[Hg] [facility] Heart rate 2025-02-14 02:20:00 84 /min [facility] Body temperature 2025-02-14 02:20:00 36.89 Stefany [facility] Respiratory rate 2025-02-14 02:20:00 18 /min [facility] Oxygen saturation in Arterial blood by Pulse oximetry 2025-02-14 02:20:00 97 /min [facility] Body height 2025-02-14 00:40:00 157.5 cm [facility] Body weight 2025-02-14 00:40:00 56.7 kg [facility] BMI 2025-02-14 00:40:00 22.86 kg/m2 [facility] Systolic blood pressure 2024-09-08 12:45:00 105 mm[Hg] [facility] Diastolic blood pressure 2024-09-08 12:45:00 60 mm[Hg] [facility] Heart rate 2024-09-08 12:45:00 62 /min [facility] Body temperature 2024-09-08 12:45:00 36.72 Stefany [facility] Respiratory rate 2024-09-08 12:45:00 12 /min [facility] Oxygen saturation in Arterial blood by Pulse oximetry 2024-09-08 12:45:00 99 /min [facility] Body height 2024-09-08 00:39:00 157.5 cm [facility] Body weight 2024-09-08 00:39:00 56.7 kg [facility] BMI 2024-09-08 00:39:00 22.86 kg/m2 [facility] Procedures Procedure Date / Time Performed Performing Clinician Source POCT TEST 2025-03-30 20:46:00 Alessandro Ham [facility] TROPONIN I 2025-03-30 19:03:00 Alessandro Ham [facility] COMP. METABOLIC PANEL ([id number]) 2025-03-30 19:03:00 Alessandro Ham [facility] URINE DRUG (IMMUNOASSAY) - COMPREHENSIVE DRUG SCREEN 2025-03-30 19:03:00 Alessandro Ham [facility] CBC WITH DIFF 2025-03-30 19:03:00 Alessandro Ham [facility] URINALYSIS 2025-03-30 19:03:00 Alessandro Ham [facility] N-TERMINAL PRO-BNP 2025-03-30 19:03:00 Alessandro Ham [facility] FENTANYL (IMMUNOASSAY) 2025-03-30 19:03:00 Leslie Ham [facility] TROPONIN I 2025-02-14 01:10:00 Yulisa Parnell [facility] COMP. METABOLIC PANEL ([id number]) 2025-02-14 01:10:00 Yulisa Parnell [facility] CBC WITH DIFF 2025-02-14 01:10:00 Yulisa Parnell [facility] N-TERMINAL PRO-BNP 2025-02-14 01:10:00 Yulisa Parnell [facility] XR CHEST 2 VW 2025-02-14 00:58:15 Yulisa Parnell [facility] POCT TEST 2024-09-08 03:02:00 Marietta Wolfe [facility] URINE DRUG (IMMUNOASSAY) - COMPREHENSIVE DRUG SCREEN 2024-09-08 01:32:00 Mag Wolfe [facility] TEST, SERUM 2024-09-08 01:25:00 Margarita Wolfe [facility] BASIC METABOLIC PANEL (NA, K, CL, CO2, GLUCOSE, BUN, CREATININE, CA) 2024-09-08 01:25:00 Mag Wolfe [facility] SALICYLATE 2024-09-08 01:25:00 [facility] 2024-09-08 01:25:00 Mag Wolfe [facility] CBC WITH DIFF 2024-09-08 01:25:00 [facility]B RSV COVID NAAT 2024-09-08 01:25:00 Mag Wolfe [facility] Encounters Start Date/Time End Date/Time Encounter Type Admission Type Attending [facility] Care Department Encounter ID Source 2025-07-05 15:25:42 2025-07-05 15:25:42 Outpatient SFA SFA [id number] René Jacques Shaw 2025-06-07 15:12:52 2025-06-07 15:12:52 Outpatient SFA SFA [id number] René Jacques Shaw 2025-05-10 15:16:46 2025-05-10 15:16:46 Outpatient SFA SFA [id number] René Squires 2025-04-19 11:32:52 2025-04-19 11:32:52 Outpatient SFA SFA [id number] René Jacques Shaw 2025-03-31 02:48:00 2025-03-31 03:35:00 Emergency Emergency NEO MASCORRO [facility] General Medicine [id number] [facility] 2025-03-30 13:28:00 2025-03-30 16:29:00 Emergency X Alessandro Ham [facility] [id number] [facility] 2025-02-14 17:28:54 2025-02-14 17:28:54 Outpatient SFA SFA [id number] René Squires 2025-02-13 19:43:00 2025-02-13 21:21:00 Emergency X YULISA PARNELL ERICCA [facility] ERT [id number] [facility] 2025-02-08 14:31:02 2025-02-08 14:31:02 Outpatient SFA SFA [id number] René Squires 2024-09-08 08:17:00 2024-09-12 15:02:00 Outpatient DALILA BRIDGES [facility] [id number] [facility] 2024-09-07 18:30:00 2024-09-08 06:50:00 Emergency X MAG WOLFE PEDRAM [facility] ERT [id number] [facility] 2024-09-07 18:30:00 2024-09-08 06:50:00 Emergency Mag Wolfe [facility] [id number] [id number] [facility] 2023-09-13 19:42:00 2023-09-13 21:29:00 Emergency EM Darrell Loera HCAKW MICHAEL [id number] [facility] Results Test Description Test Time Test Comments Results Result Co mments Source [facility] [id number] 20:10:52* Test Item Value Reference Range Interpretation Comme nts TROPONIN I (test code = 4315959907) 0.001 ng/mL <=0.034 KRISHAN (test code = KRISHAN) Reference (Normal) Range (defined by the 99th percentile reference limit): <= 0.034 ng/mL Note: Cardiac troponin begins to rise 3-4 hours after the onset of ischemia. Repeat in 4-6 hours if the sample was drawn within 3-4 hours of the onset of the symptom and found normal. Diagnosis of myocardial injury is made with acute changes in cTn concentrations with at least one serial sample above the 99th percentile upper reference limit (URL), taken together with the patient's clinical presentation. Biotin has been reported to cause a negative bias, interpret results relative to patient's use of biotin. Lab Interpretation (test code = 16792-1) Normal [facility] Cbr-[id number] 20:08:28* Test Item Value Reference Range Interpretation Comme nts NT-proBNP (test code = 98229-4) 93 pg/mL <=125 Lab Interpretation (test cod e = 16298-5) Normal [facility] Met[facility] Panel (87929)2025-03-30 19:59:29* Test Item Value Reference Range Interpretation Comme nts NA (test code = 6521976831) 138 mmol/L 135-145 K (test code = 1661357933) 3.7 mmol/L 3.5-5.0 CL (test code = 3472561038) 104 mmol/L 98-108 CO2 TOTAL (test code = 0518527436) 26 mmol/L 23-31 AGAP (test code = 4601231093) 8 2-16 BUN (test code = 3157528100) 7 mg/dL 7-23 GLUCOSE (test code = 0422887114) 66 mg/dL 70-110 L CREATININE (test code = 2160-0) 0.67 mg/dL 0.50-1.04 TOTAL BILI (test code = 7641841429) 0.4 mg/dL 0.1-1.1 CALCIUM (test code = 9013682386) 8.9 mg/dL 8.6-10.6 T PROTEIN (test code = 9538288416) 6.8 g/dL 6.3-8.2 ALBUMIN (test code = 0282475026) 4.5 g/dL 3.5-5.0 ALK PHOS (test code = 2158518210) 59 U/L 34-122 ALTv (test code = 1742-6) 12 U/L 5-35 AST(SGOT) (test code = 3183726748) 19 U/L 13-40 eGFR (test code = 31413-0) 127.7 mL/min/1.73m2 CKD-EPI eGFR (2020). Assuming creatinine has been stable day-to-day for at least three months, the eGFR indicates Category G1 (>= 90 mL/min/1.73 m2) Lab Interpretation (test code = 87751-5) Abnormal [facility] with [id number] 19:53:26* Test Item Value Reference Range Interpretation Comme nts WBC (test code = 6690-2) 9.98 4.30-11.10 RBC (test code = 789-8) 4.14 3.93-5.25 HGB (test code = 718-7) 13.3 g/dL 11.6-15.0 HCT (test code = 4544-3) 39.7 % 35.7-45.2 MCV (test code = 787-2) 95.9 fL 80.6-95.5 H MCH (test code = 785-6) 32.1 pg 25.9-32.8 MCHC (test code = 786-4) 33.5 g/dL 31.6-35.1 RDW-SD (test code = 78483-2) 44.3 fL 39.0-49.9 RDW-CV (test code = 788-0) 12.6 % 12.0-15.5 PLT (test code = 777-3) 248 166-358 MPV (test code = 09606-7) 11.1 fL 9.5-12.9 NRBC/100 WBC (test code = 4168903377) 0 0.0-10.0 NRBC x10^3 (test code = 6911615125) See_Comment [Automated messa ge] The system which generated this result transmitted reference range: 10*3/?L. The reference range was not used to interpret this result as normal/abnormal. GRAN MAT (NEUT) % (test code = 770-8) 61.3 % IMM GRAN % (test code = 0674527720) 0.3 % LYMPH % (test code = 736-9) 32 % MONO % (test code = 5905-5) 5.4 % EOS % (test code = 713-8) 0.7 % BASO % (test code = 706-2) 0.3 % GRAN MAT x10^3(ANC) (test code = 7800973344) 6.12 10*3/uL 1.88-7.09 IMM GRAN x10^3 (test code = 8987742074) 0.03 10*3/uL 0.00-0.06 LYMPH x10^3 (test code = 731-0) 3.19 10*3/uL 1.32-3.29 MONO x10^3 (test code = 742-7) 0.54 10*3/uL 0.33-0.92 EOS x10^3 (test code = 711-2) 0.07 10*3/uL 0.03-0.39 BASO x10^3 (test code = 704-7) 0.03 10*3/uL 0.01-0.07 Lab Interpretation (test code = 25475-4) [facility] [id number] 01:32:50XR CHEST 2 VW 02/13/2025 7:47 PM HISTORY: pleuritic pain . COMPARISON: None. FINDINGS: Cardiomediastinal silhouette is unremarkable. No focal lung capacity, sizable pleural effusion or pneumothorax. No acute osseous abnormality.[facility] [id number] 03:02:00* Test Item Value Reference Range Interpretation Comme nts POCT PREG (test code = 1605) Negative On board controls acceptable with C Line (test code = 3574) Yes POCT PREG LOT # (test code = 3575) [id number] POCT PREG TEST DATE ( test code = 3576) 2025-09-05 Lab Interpretation (test cod e = 14653-1) Normal [facility]- XR FINGER(S) 2+V [id number] 20:37:00 [facility] 2005 Sex: F FAX: Yanet Fishman [place]: St: REG FAX: Christopher Wing MD [phone] Name: MERON BOSCH [facility] : 2005 Age/S: 18/F [address] Unit #: [id number] Loc: [place] [address] Phys: Yanet Fishman Acct: [id number] Dis Date: Status: REG ER PHONE #: [phone] Exam Date: FAX #: [phone] Reason: left small finger injury EXAMS: CPT CODE: [id number] XR FINGER(S) 2+V LT [address]82 LOCATION: H43 EXAM: - XR FINGER(S) 2+V LT HISTORY: [...] signed by: Halima Vasques MD CC: Yanet Eubanks MD Technologist: Antoinette Farrar Trnscrd Date/Time/By: 09/13/2023 (2036): By: [email or web address] PAGE 1 Signed Report FAX: Yanet Fishman [place]: St: REG FAX: Christopher Wing MD [phone] Name: MERON BOSCH : 2005 Age/S: 18/F [address] Unit #: [id number] Loc: [place] [address] Phys: Yanet Fishman APRNNP Acct: [id number] Dis Date: Status: REG ER PHONE #: [phone] Exam Date: 09/13/20232004 FAX #: [phone] Reason: left small finger injuryEXAMS: CPT CODE: [id number] XR FINGER(S) 2+[place] [address] (Continued) Orig Print D/T: S: 09/13/2023 (2039) PAGE 2 Signed Report Notes Date/Time Note Provider Source 2025-03-30 16:23:54 Pt given printed and verbal discharge instructions regarding symptoms, encouraged hydration and follow up with PCP and Psychologist. Pt verbalized understanding of instructions, pt awake alert oriented, resp reg unlabored, skin w/d, color appropriate for race, moves all extremities. Advised to seek medical attention for new/prolonged/worsening of symptoms, Symptoms. PIV d'cd, dressing to site, catheter in tact. Awake, alert oriented, resp reg unlabored, skin w/d, pt leaving amb with steady gait, in no apparent distress. Teodoro Rodríguez RN [facility] 2025-03-30 13:18:25 Pt sent nurse triage to rule out DVT. States she takes quite a few psych meds for bipolar disorder, currently on seroquel and is compliant. States in the past she's had lithium and depakote which would make her wake up every hour at night and cause bilateral arm aching. Stopped that and switched to seroquel and a few other that she gets from [facility]. Past few days bilateral arms have same feeling-describes as "when your arm falls asleep and starts to wake up again, like that tingling pricking feeling". Friend at worked noticed she had "white girl legs where you can see through them" as well. Right leg appears to have scant mottling. Pt called nurse hotline where she gets her psych meds as was told to come to ED to rule out clot in arm. Christy Brock RN [facility] 2025-03-30 13:09:00 [facility] Emergency Department Note Patient Name: Meron Bosch Date of : 2005 19 year old female Treatment Room: NM7 Primary Care Physician: PATIENT DOES NOT HAVE A PCP Patient Escorted by: Self [9] Mode of Arrival: Personal means [1] EMS Treatment Prior to ED Arrival: Travel and Exposure Screening: Symptoms Does patient have any of these symptoms?: (not recorded) Exposure Screening Has patient had contact with someone with a communicable disease in the last month?: (not recorded) Diseases exposed to:: (not recorded) Is Patient ?: (not recorded) Exposure Date: (not recorded) Chief Complaint: Chief Complaint Patient presents with Other Rule out DVT History of Present Illness: History of Present Illness 19 y.o. female h/o BPD(on Seroquel), now with arm leg aching and sometimes feels like " leg" in morning. Past Medical History/Immunizations: No past medical history on file. Allergies: Allergies Allergen Reactions Omnicef [Cefdinir] Hives Past Social History: Substance & Sexual Activity No substance use or sexual activity history on file. Past Surgical History: No past surgical history on file. Review of Systems: Review of Systems Constitutional: Positive for fatigue. Negative for chills and fever. HENT: Negative. Eyes: Negative. Respiratory: Negative. Breasts: Negative. Gastrointestinal: Negative. Genitourinary: Negative. Musculoskeletal: Positive for myalgias. Skin: Negative. Neurological: Negative. Psychiatric/Behavioral: Negative. Endocrine: Endocrine negative Physical Exam: Physical Exam ED Triage Vitals [03/30/25 1320] Weight 56.7 kg (125 lb) Actual or estimated Estimated by patient/family report Height 1.575 m (5' 2") BP 128/80 Pulse 91 Resp 14 Temp 36.9 ?C (98.4 ?F) Temp source Oral SpO2 100 % Measured on Room air Physical Exam Vitals and nursing note reviewed. Constitutional: Appearance: Normal appearance. HENT: Head: Normocephalic. Mouth/Throat: Mouth: Mucous membranes are moist. Eyes: Pupils: Pupils are equal, round, and reactive to light. Cardiovascular: Rate and Rhythm: Normal rate and regular rhythm. Pulses: Normal pulses. Heart sounds: Normal heart sounds. Comments: Pulses in hands/legs/feet-normal Pulmonary: Effort: Pulmonary effort is normal. Abdominal: Palpations: Abdomen is soft. Musculoskeletal: General: Normal range of motion. Skin: General: Skin is warm. Capillary Refill: Capillary refill takes less than 2 seconds. Neurological: General: No focal deficit present. Mental Status: She is alert and oriented to person, place, and time. Psychiatric: Mood and Affect: Mood normal. Behavior: Behavior normal. Radiology: No orders to display Lab Results: Lab Results - No data to display EKG: If EKG completed, see Procedure Note. Orders and Treatments: Orders Placed This Encounter Procedures Cbc with Diff Comp. Metabolic Panel (37756) Urinalysis POCT Test Urine Drug (Immunoassay) - Comprehensive Drug Screen Fentanyl (Immunoassay) Troponin I N-Terminal Pro-Bnp No orders of the defined types were placed in this encounter. First Provider Eval: ED Events Date/Time Event User Comments 03/30/25 1329 Medical Screening Begins ALESSANDRO HAM MD -- 03/30/25 1329 First Provider Evaluation ALESSANDRO HAM MD -- ED COURSE Diagnosis/Impression as of 03/30/25 1408 Swelling Results Procedures: Procedures MDM: Assessment & Plan Medical Decision Making Amount and/or Complexity of Data Reviewed Labs: ordered. Flowsheet Documentation: Scoring Tools: No data recorded A) BPD, Musculoskeletal pain Disposition/Condition: Rest, hydration, ER warnings, f/u PCP, avoid illicit drug use/abuse ED Disposition None Discharge Medications: Patient's Medications START taking these medications No medications on file CONTINUE taking these medications which have NOT CHANGED IBUPROFEN 600 MG TABLET Take 1 tablet by mouth every 6 (six) hours as needed for Pain (scale 4-6). METHYLPREDNISOLONE (MEDROL, HELEN,) 4 MG TABLETS Take by mouth SEE-INSTRUCTIONS. follow package directions START taking Modified Medications as Prescribed No medications on file STOP taking these medications No medications on file Follow-up: PCP Electronically signed by: Alessandro Ham MD 03/30/25 1549 T [facility] 2025-02-13 21:21:11 Awake, alert oriented X4, respiratory even and unlabored,skin w/d color appropriate for race, moves all ext well, pt encouraged to follow up with pcp and or return as needed Pt given printed and verbal discharge instructions regarding Chest pain, Pleuritic , patient verbralized understanding and signature obtained, patient denies any other concerns. Prescriptions provided Advised to seek medical attention for new/prolonged/worsening of symptoms, No adverse reaction to meds given in ER noted upon discharge Pt ambulated to [facility] with steady gait HANIET Margo Irizarry RN [facility] 2025-02-13 20:24:53 PT ORDERS COMPLETED,PT TOLERATED WELL, PT PLACED IN LOBBY, PT ADVISED TO RETURN TO TRIAGE WITH ANY CONCERNS OR WORSEN SYMPTOMS. [facility] 2025-02-13 19:57:02 No answer in [facility] 2025-02-13 19:38:43 CC: SOB, CP, syncope x few weeks. Pt was seen at [facility] and dx with pleurisy, no relief since. Adal Boyd RN [facility] 2024-09-08 06:45:00 Patient transferred to [facility] for diagnosis of suicidal ideation Patient agrees to transfer/admit plan and verbalized understanding of plan of care, family aware of plan Patient awake alert, oriented, resp reg unlabored, skin w/d No adverse reaction to medications given while in ED. Report given to [facility] EMS personnel NA Carvalho RN [facility] 2024-09-08 06:45:00 Called patient's mother and updated on plan of care per patient's request. [facility] 2024-09-08 06:45:00 Problem: Suicide, Risk of Goal: Absence of self-harm Outcome: Resolved [facility] 2024-09-08 06:14:37 [facility] ETA 30 minutes. [facility] 2024-09-07 22:37:08 Spoke to [facility]. Recommending inpatient. [facility] 2024-09-07 22:18:01 [facility] customer assistance representative has arrived. Provided with appropriate patient documentation. [facility] 2024-09-07 21:23:00 Updated momVero on phone per patients request. [facility] 2024-09-07 21:21:16 [facility] ETA 1 hour. [facility] 2024-09-07 21:11:12 Spoke to [facility] on phone. Will call back with an ETA. [facility] 2024-09-07 19:16:21 Patient has prescriptions for Chlordiazpeoxide HCL 25mg taper, Quetiapine 25mg three times a day PRN, Quetiapine 400mg HS, Oxycarbazepine 300mg twice a day, and Vitamin D2 1.25mg weekly. [facility] 2024-09-07 19:02:41 Patient educated on emergency department behavioral process and precautions. Educated on the need for direct observation, removal of belongings, and clearing of room for patient safety. [facility] 2024-09-07 18:54:20 SAFE-T Protocol with C-SSRS ([place] Risk and Protective Factors) - Recent Step [...] there things, anyone or anything (e.g. family, jain, pain of ), that stopped you from [...] Follow-up determined by the inpatient Psychiatric facility. [facility] 2024-09-07 18:33:53 Pt to ED reporting that she was supposed to go to [facility] today, but states that they were not able to accept her because they do not have a detox program. Reports that she went to [facility] and was prescribed chlordiazepoxide to start the detox process, but did not knot picker cloth the medications. Reports that she came here [...] used cocaine yesterday. Last used meth yesterday. [facility] 2024-09-07 18:24:00 [facility] Emergency Department Note Patient Name: Meron Bosch Date of : 2005 19 year old female Treatment Room: [place] [address] Primary Care Physician: No primary care provider on file. Patient Escorted by: Family [5] Mode of Arrival: Personal means [1] EMS Treatment Prior to ED Arrival: CORD SPLICER treatment: Medication (comment) CORD SPLICER treatment comments: daily meds Travel and Exposure [...] as of 09/07/242225Sep 07, 20242223 Awaiting on [facility] mental health evaluation. PT to be s/o to Dr. Almeida. [PB] 1858 Will obtain psych labs. [PB] ED Course User Index [PB] Mag Wolfe MD Diagnosis/Impression as of 09/07/242225 Suicidal ideation Procedures: Procedures MDM: Medical Decision Making 19 yo F presents with SI Amount and/or Complexity of Data Reviewed Labs: ordered. Details: UDS + for amphetamine, THC, cocaine, Discussion of management or test interpretation with external provider(s): [facility] in agreement with transfer for psych facility. Risk Prescription drug management. Flowsheet Documentation: Scoring Tools: No data recorded Disposition/Condition: ED Disposition None Discharge Medications: Patient's Medications No medications on file Follow-up: Electronically signed by: Mag Wolfe MD 09/07/246 Mag Wolfe MD 09/07/24 2259 [facility] 2024-09-07 18:24:00 Psychiatric Re-Evaluation Note Emergency Department Date: September 08, 2024 I have reassessed the patient on this shift. The patient states or demonstrates that they are still having: Suicidal ideation or thoughts: Yes Homicidal ideation or thoughts: No Auditory and/or visual hallucinations: No Psychosis, paranoia, or other mental instability impairing normal decision making: No Suggested risk level of [place]: High On reassessment, the patient should still [...] Juan Pablo Toribio Donnell, MD 09/08/24 0557 -[facility] EMERGENCY PHYSICIAN STAFF [facility] 2023-09-13 19:57:00 [facility] ([facility] EMERGENCY PROVIDER REPORT REPORT#:[id number] REPORT STATUS: Signed DATE:09/13/23 TIME: 1956 PATIENT: MERON BOSCH UNIT #: [id number] ROOM/BED: AGE: 18 SEX: F PCP PHYS: Christopher Eubanks MD SERVICE AUTHOR: Yanet Fishman * ALL edits or amendments must be [...] PINKY FINGER Allergies Coded Allergies: cefdinir (From OMNICEF) (Intermediate, RASH 08/09/17) Home Medications Reported Medications [...] of the 5th proximal phalanx. Impression By: Halima Crawford MD Lab Statement Laboratory studies reviewed and [...] Ox 97 09/13 1946 B/P 123/80 09/13 194 B/P Mean 94.1 09/13 1946 Temp 37.2 [...] Additional Instructions Thank you for coming to [facility] The care we provided was on an [...] or a call to 911. Darrell Loera P 09/13/232121: Physical Exam Vital Signs Vital Signs [...] 1948 Patient Discharge Departure Supervising Physician Note Taya Saw Pt Alone I have reviewed the PA/MORTAR MIXER OPERATOR's note and plan of care. I was available for consultation as needed at all times during the patient's visit in the emergency department. I agree with the clinical impression, plan and disposition. at 5002 at 2256 RPT #:[id number] END OF REPORT HCAKW
[2025-07-06 01:49] LABS: Absolute Lymphocytes (CBC) 2.7 K/uL (0.7-4.9); Hematocrit 42.5 % (36.0-45.0); Hemoglobin 14.7 g/dL (12.0-15.0); MCH 31.7 pg (27.0-35.0); MCHC 34.6 g/dL (32.0-36.0); MCV 91.7 fL (80-100); MPV 8.4 fL (7.6-11.3); Nucleated RBC Absolute Count 0.0 (0-0); Nucleated Red Blood Cells % 0.1 % (0-0); RBC Red Blood Cell Count 4.63 M/uL (3.86-4.86); White Blood Count 12.60 thou/uL (4.3-10.9)
[2025-07-06 02:06] LABS: ALT/SGPT 19 U/L (13-56); Albumin 4.0 g/dL (3.4-5.0); Albumin/Globulin Ratio 1.3 (1.1-1.8); Alkaline Phosphatase 54 U/L (45-117); Anion Gap 8.7 mEq/L (5.0-15.0); BUN Blood Urea Nitrogen 10 mg/dL (7-18); Globulin 3.0 g/dL (2.3-3.5); Glucose Level 92 mg/dL (74-106); Lipase 63 U/L (13-75); Potassium 3.7 mEq/L (3.5-5.1)
[2025-07-06] MEDS ORDERED: DIPHENHYDRAMINE 50 MG/ML VIAL ONE (02:19)
[2025-07-06 02:30] LABS: AST/SGOT < 10 U/L (15-37)
[2025-07-06] MEDS ORDERED: NA CHLORIDE 0.9% 0 ML ONE (03:46)
--- NOTE | 2025-07-06 04:12 | ER ---
Nurse's Notes [facility] Name: Elvia Bosch Age: 19 yrs Sex: Female : 2005 Arrival Date: 07/06/2025 Time: 00:39 Bed 16 Private MD: Diagnosis: Abdominal pain, Generalized;Nausea Presentation: 07/06 01:03 Chief complaint: Patient states: chest pain with abdominal pain, SOB, for weeks tonight vc1 started having blurred vision tonight. Coronavirus screen: Client denies travel out of the [place] in the last 14 days. At this time, the client does not indicate any symptoms associated with coronavirus-19. Ebola Screen: Patient negative for fever greater than or equal to 101.5 degrees Fahrenheit, and additional compatible Ebola Virus Disease symptoms Patient denies exposure to infectious person. Patient denies travel to an Ebola-affected area in the 21 days before illness onset. No symptoms or risks identified at this time. Initial Sepsis Screen: Does the patient meet any 2 criteria? No. Patient's initial sepsis screen is negative. Does the patient have a suspected source of infection? No. Patient's initial sepsis screen is negative. Risk Assessment: Do you want to hurt yourself or someone else? Patient reports no desire to harm self or others. Onset of symptoms is unknown. 01:03 Method Of Arrival: Ambulatory vc1 01:03 Acuity: JENNIFER 3 vc1 Triage Assessment: 01:10 General: Appears in no apparent distress. uncomfortable, slender, Behavior is calm, vc1 cooperative, appropriate for age. Pain: Complains of pain in chest, right upper quadrant and left lower quadrant Pain does not radiate. Pain currently is 6 out of 10 on a pain scale. Quality of pain is described as sharp, Pain began weeks. EENT: No deficits noted. No signs and/or symptoms were reported regarding the EENT system. Neuro: Level of Consciousness is awake, alert, obeys commands. Cardiovascular: Reports chest pain, lightheadedness, shortness of breath, Capillary refill < 3 seconds Patient's skin is warm and dry. Respiratory: Reports shortness of breath at rest Airway is patent Respiratory effort is even, unlabored, Respiratory pattern is regular, symmetrical. GI: No deficits noted. No signs and/or symptoms were reported involving the gastrointestinal system. : No deficits noted. No signs and/or symptoms were reported regarding the genitourinary system. Derm: Skin is intact, is healthy with good turgor, Skin is dry, Skin is normal. Musculoskeletal: Circulation, motion, and sensation intact. Range of motion: intact in all extremities. 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 Flu vaccine is not up to date. - Infectious Disease History:: Denies. - Social history:: Smoking status: Patient reports the use of cigarette tobacco products, smokes one-half pack cigarettes per day. Screenin:09 [facility] ED Fall Risk Assessment (Adult) History of falling in the last 3 months, vc1 including since admission No falls in past 3 months (0 pts) Confusion or Disorientation No (0 pts) Intoxicated or Sedated No (0 pts) Impaired Gait No (0 pts) Mobility Assist Device Used No (0 pt) Altered Elimination No (0 pt) Score/Fall Risk Level 0 - 2 = Low Risk Oriented to surroundings, Maintained a safe environment, Educated pt \T\ family on fall prevention, incl call for assistance when getting out of bed, Assessed \T\ reinforced patient's understanding of fall precautions, Hourly rounding (assess needs \T\ fall precautionary measures) done. Abuse screen: Denies threats or abuse. Nutritional screening: No deficits noted. Tuberculosis screening: No symptoms or risk factors identified. Assessment: 02:05 Reassessment: Patient appears in no apparent distress at this time. Patient and/or jb4 family updated on plan of care and expected duration. Pain level reassessed. Patient is alert, oriented x 3, equal unlabored respirations, skin warm/dry/pink. 03:20 Reassessment: Patient appears in no apparent distress at this time. Patient and/or jb4 family updated on plan of care and expected duration. Pain level reassessed. Patient is alert, oriented x 3, equal unlabored respirations, skin warm/dry/pink. 04:33 Reassessment: Patient appears in no apparent distress at this time. Patient and/or jb4 family updated on plan of care and expected duration. Pain level reassessed. Patient is alert, oriented x 3, equal unlabored respirations, skin warm/dry/pink. Vital Signs: 01:03 BP 116 / 87; Pulse 87; Resp 16; Temp 99.2; Pulse Ox 100% ; Weight 52.16 kg; Height 5 vc1 ft. 3 in. ; Pain 6/10; 02:30 BP 101 / 54; Pulse 71; Resp 16; Pulse Ox 100% on R/A; jb4 03:20 BP 92 / 52; Pulse 68; Resp 16; Pulse Ox 100% on R/A; jb4 04:00 BP 105 / 74; Pulse 66; Resp 16; Pulse Ox 100% on R/A; jb4 01:03 Body Mass Index 20.37 (52.16 kg, 160.02 cm) vc1 01:03 Pain Scale: Adult vc1 ED Course: 00:42 Patient arrived in ED. mr 01:00 Albino Dias DO is Attending Physician. tt7 01:08 Triage completed. vc1 01:09 Arm band placed on right wrist. vc1 01:10 Patient has correct armband on for positive identification. Bed in low position. Call vc1 light in reach. Provided Education on: Plan of care. Pulse ox on. NIBP on. 01:35 No provider procedures requiring assistance completed. Patient maintains SpO2 jb4 saturation greater than 95% on room air. 01:37 CBC with Diff Sent. jb4 01:37 CMP Sent. jb4 01:37 Lipase Sent. jb4 01:37 Test, Serum Sent. jb4 02:04 Tyler Walters, RN is Primary Nurse. jb4 04:36 IV discontinued, intact, bleeding controlled, No redness/swelling at site. Pressure jb4 dressing applied. Administered Medications: 01:36 Drug: Droperidol IVP 1.25 mg IVP once Route: IVP; Site: left antecubital; jb4 02:10 Follow up: Response: Adverse reaction, Physician notified jb4 02:25 Drug: diphenhydrAMINE IVP 25 mg IVP once Route: IVP; Site: left antecubital; jb4 03:53 Follow up: Response: No adverse reaction; Marked relief of symptoms jb4 03:53 Not Given (Patient Refused): ns 0.9% 1000 ml IV at 1000 ml once; to be given as a bolus jb4 over 60 minutes Medication: 01:12 VIS not applicable for this client. vc1 Outcome: 04:12 Discharge ordered by . tt7 04:36 Discharged to home ambulatory, jb4 04:36 Condition: stable 04:36 Discharge instructions given to patient, Instructed on discharge instructions, follow up and referral plans. Demonstrated understanding of instructions, follow-up care, 04:37 Patient left the ED. jb4 Signatures: Marti Martinez, Reg Reg Tyler Walters, RN RN jb4 Kathleen Liu RN RN vc1 Albino Dias, DO tt7
--- NOTE | 2025-07-06 04:12 | EDPHYS ---
Physician Documentation [facility] Name: Elvia Bosch Age: 19 yrs Sex: Female : 2005 Arrival Date: 07/06/2025 Time: 00:39 Bed 16 Private MD: ED Physician Albino Dias HPI: 07/06 02:29 This 19 yrs old Female presents to ER via Ambulatory with complaints of epigastric tt7 pain, lightheaded. 02:29 Patient reports 1 week of epigastric abdominal pain and right flank pain that radiates tt7 into her back, some discomfort that radiates up into her chest, symptoms have been intermittent for the past 1 week, no exact exacerbating or alleviating factors, reports some urinary frequency but no dysuria, denies fever or cough, denies shortness of breath, states she has also been feeling a bit lightheaded lately, no significant past medical history. 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 Flu vaccine is not up to date. - Infectious Disease History:: Denies. - Social history:: Smoking status: Patient reports the use of cigarette tobacco products, smokes one-half pack cigarettes per day. ROS: 01:39 Constitutional: negative for fever. tt7 01:39 Respiratory: negative for shortness of breath. 01:39 MS/Extremity: negative for injury and deformity. Skin: negative for rash. Neuro: negative for focal weakness. 01:39 Cardiovascular: Positive for chest pain, 01:39 Abdomen/GI: Positive for abdominal pain, nausea, Negative for vomiting, Exam: 01:40 Constitutional: vital signs reviewed, well appearing. Head/Face: normocephalic, tt7 atraumatic. Eyes: no conjunctival injection, anicteric sclerae. ENT: mucus membranes moist. Neck: trachea midline, no JVD, no meningismus. Chest/axilla: normal chest wall appearance and motion, nontender, no crepitus. Cardiovascular: regular rate and rhythm, no murmurs, no rubs, no lower extremity edema. Respiratory: normal respiratory effort, no accessory muscle use, lungs CTAB. Abdomen/GI: soft, nondistended, minimal epigastric tenderness, no guarding or rebound, negative Ricci's sign, no McBurney point tenderness. Back: normal ROM. Skin: warm, dry, intact, normal turgor, normal color, no rash. MS/ Extremity: normal ROM of extremities, no gross deformities. Neuro: alert and oriented with appropriate mental status, normal speech, follows commands, no focal neurologic deficits. Psych: appropriate mood and affect. Vital Signs: 01:03 BP 116 / 87; Pulse 87; Resp 16; Temp 99.2; Pulse Ox 100% ; Weight 52.16 kg; Height 5 vc1 ft. 3 in. ; Pain 6/10; 02:30 BP 101 / 54; Pulse 71; Resp 16; Pulse Ox 100% on R/A; jb4 03:20 BP 92 / 52; Pulse 68; Resp 16; Pulse Ox 100% on R/A; jb4 04:00 BP 105 / 74; Pulse 66; Resp 16; Pulse Ox 100% on R/A; jb4 01:03 Body Mass Index 20.37 (52.16 kg, 160.02 cm) vc1 01:03 Pain Scale: Adult vc1 MDM: 01:00 Medical Screening Exam initiated tt7 01:40 Differential diagnosis: abnormal EKG, anxiety, chest wall pain, costochondritis, tt7 gastritis, gastroesophageal reflux disease (GERD), pancreatitis, peptic ulcer disease. Data reviewed: vital signs, nurses notes, lab test result(s), EKG, radiologic studies. ED course: I independently interpreted the patient's EKG performed on 07/06/2025 at 0107. On my interpretation, EKG demonstrates normal sinus rhythm, ventricular rate 86 bpm, normal axis, normal QRS interval, normal ST segments, no STEMI. 02:33 ED course: Patient is well-appearing and vital signs are stable, physical exam tt7 reassuring, laboratory studies and EKG ordered, troponin not ordered due to extremely low pretest probability and no risk factors for ACS, EKG reassuring. 03:46 ED course: Laboratory study results are overall reassuring, no acute abnormalities tt7 requiring further evaluation, on reassessment patient's symptoms are feeling improved, pending results of urinalysis, I considered ordering right upper quadrant ultrasound to assess for cholelithiasis but as patient's symptoms are significantly improved and laboratory studies are reassuring this can be performed on an outpatient basis. 03:51 ED course: Patient requesting to be discharged from the emergency department, she does tt7 not feel that her urine infection is the cause of her symptoms so she is refusing any further testing and would like to leave the emergency department, at this time I do not have significant concern of acute or dangerous pathology requiring inpatient admission, there is risk of patient symptoms being caused by urinary infection which could lead to pyelonephritis or sepsis if left untreated, patient is understanding of that risk but is able to make her own medical decisions, return precautions discussed. 07/06 01:06 Order name: CBC with Diff; Complete Time: 02:28 tt7 07/06 01:06 Order name: CMP; Complete Time: 02:31 tt7 07/06 01:06 Order name: Lipase; Complete Time: 02:31 tt7 07/06 01:06 Order name: Test, Serum; Complete Time: 02:28 tt7 07/06 01:06 Order name: EKG; Complete Time: 01:06 tt7 07/06 01:06 Order name: IV Saline Lock; Complete Time: 01:37 tt7 07/06 01:06 Order name: Labs collected and sent; Complete Time: 01:37 tt7 07/06 01:06 Order name: EKG - Nurse/Tech; Complete Time: 01:23 tt7 Administered Medications: 01:36 Drug: Droperidol IVP 1.25 mg IVP once Route: IVP; Site: left antecubital; jb4 02:10 Follow up: Response: Adverse reaction, Physician notified jb4 02:25 Drug: diphenhydrAMINE IVP 25 mg IVP once Route: IVP; Site: left antecubital; jb4 03:53 Follow up: Response: No adverse reaction; Marked relief of symptoms jb4 03:53 Not Given (Patient Refused): ns 0.9% 1000 ml IV at 1000 ml once; to be given as a bolus jb4 over 60 minutes Disposition: 06:59 Co-signature as Attending Physician, Albino Dias DO. tt7 Disposition Summary: 07/06/25 04:12 Discharge Ordered Notes: Location: Home tt7 Problem: new tt7 Symptoms: have improved tt7 Condition: Stable tt7 Diagnosis - Abdominal pain, Generalized tt7 - Nausea tt7 Followup: tt7 - With: Emergency Department - When: As needed - Reason: Followup: tt7 - With: Private Physician - When: 1 - 2 days - Reason: Recheck today's complaints, Re-evaluation by your physician Discharge Instructions: - Discharge Summary Sheet tt7 - Nausea, Adult tt7 - Abdominal Pain, Adult, [id number] tt7 Forms: - Medication Reconciliation Form tt7 - Antibiotic Education tt7 - Prescription Opioid Use tt7 - Patient Portal Instructions tt7 - Leadership Thank You Letter tt7 Signatures: Dispatcher [employer] EDMS Tyler Walters, RN RN jb4 Kathleen Liu RN RN vc1 Albino Dias, DO tt7 Corrections: (The following items were deleted from the chart) 02:33 02:29 Patient reports 1 week of epigastric abdominal pain and right upper quadrant pain tt7 that radiates to her back. tt7 03:47 02:33 ED course: Patient is well-appearing and vital signs are stable, physical exam tt7 reassuring, laboratory studies and EKG ordered, troponin ordered due to extremely low pretest probability and no risk factors for ACS, EKG reassuring. tt7
[2025-07-06 05:23] VITALS: TEMP 99.2; O2SAT 100
[2025-07-06 05:28] VITALS: BP 105/74
== END 2025-07-06 04:37 | disposition home or self-care (01) ==
LOC: ER 00:39
DX: R10.84 Generalized abdominal pain (principal); R11.0 Nausea
CPT/HCPCS: 36415; 80053; 83690; 84703; 85025; 93005; 96374; 96375; 99284; J1200; J1790; J7030